=== PATIENT | female | born 1990 | race Two or more races ===

== ENCOUNTER 2019-09-16 20:17 | Emergency (ER) | payer SELFPAY ==
[~2019-09-16] VITALS: Ht 170.2 cm; Wt 122.5 kg
[2019-09-16] MEDS ORDERED: IPRATROPIUM BROM 0.5 MG/2.5ML INH SOL NEB ONE (20:30)
[2019-09-16] MEDS ORDERED: ALBUTEROL SULF 2.5 MG/0.5ML(0.5%) NEB SOLN NEB ONE (20:30)
[2019-09-16 23:56] VITALS: BP 137/88
[2019-09-17] MEDS ORDERED: methylPREDNISolone SOD SUCC 125 MG/2 ML VL IM ONE
[2019-09-17] MEDS ORDERED: EPINEPHrine HCL 0.5 ML NEB NEB ONE
== END 2019-09-17 00:37 | disposition home or self-care (01) ==
LOC: ER 20:23
DX: J45.909 Unspecified asthma, uncomplicated (principal)
CPT/HCPCS: 94640; 96372; 99284; J2930